=== PATIENT | female | born 2000 | race Hispanic/Latino ===

== ENCOUNTER 2024-07-23 16:02 | Emergency (ER) | payer OTHER ==
[2024-07-23 17:28] LABS: #Basophils 0.05 10x3/uL (0.0-0.2); %Basophils 0.7 % (0.0-1.0); %Lymphocytes 32.6 % (21.0-51.0); %Monocytes 7.3 % (0.0-10.0); %Neutrophils 58.3 % (42.0-75.0); Hematocrit 33.1 % (36.0-47.0); Hemoglobin 10.4 g/dL (12.0-16.0); Mean Corpuscular HGB CONC 31.4 g/dL (32.0-36.0); Mean Corpuscular Hemoglobin 24.2 pg (27.0-31.0); Mean Platelet Volume 11.5 fL (7.4-10.4); Platelet Count 294 10x3/uL (130-400); RBC Distribution Width 16.2 % (11.5-14.5)
[2024-07-23 17:44] LABS: ALT (SGPT) Less than 7 U/L (Less than 34); AST (SGOT) 16 U/L (11-34); Albumin 4.1 g/dL (3.1-4.5); Alkaline Phosphatase 53 U/L (40-110); Anion Gap 13 mmol/L (10-20); BUN (Urea Nitrogen) 11 mg/dL (7.0-18.7); Bilirubin, Total 0.5 mg/dL (0.3-1.2); Calc. Creatinine Clearance 0 mL/min (70-130); Calcium 9.6 mg/dL (7.8-10.44); Carbon Dioxide 24 mmol/L (22-29); Chloride 106 mmol/L (98-107); Estimated GFR 93; Globulin 3.1 g/dL (2.4-3.5); Glucose 81 mg/dL (70-105); Potassium 2.7 mmol/L (3.5-5.1); Protein, Total 7.2 g/dL (6.0-8.3); Sodium 140 mmol/L (136-145)
[2024-07-23 17:46] LABS: BHCG - Serum Negative (NEGATIVE); Pregs Control Background? CLEAR/WHITE (CLR/WHITE); Pregs Control Bar Appear? YES (CONTROL BAR)
[2024-07-23 17:48] LABS: Troponin I Less than 0.010 ng/mL (< 0.028)
[2024-07-23 19:12] LABS: Magnesium 1.7 mg/dL (1.6-2.6)
[2024-07-23] MEDS ORDERED: Potassium Chloride 20 MEQ TAB ONE (19:12)
[2024-07-23] MEDS ORDERED: Magnesium 2 GM/50 ML BAG (IN WATER) ONE (19:12)
[2024-07-23] MEDS ORDERED: Potassium Chloride 20 MEQ (100 mL) BAG ONE (19:13)
== END 2024-07-24 01:06 | disposition home or self-care (01) ==
LOC: ERS 16:02
DX: R00.2 Palpitations (principal); F41.9 Anxiety disorder, unspecified; E87.6 Hypokalemia; F84.0 Autistic disorder
CPT/HCPCS: 71045; 80053; 83735; 84484; 84703; 85025; 85379; 93005; 96365; 96366; 96367; J3475; J3480

== ENCOUNTER 2024-07-29 09:40 | Emergency (ER) | payer OTHER ==
[2024-07-29 10:12] LABS: #Basophils 0.06 10x3/uL (0.0-0.2); %Basophils 1.1 % (0.0-1.0); %Eosinophils 0.6 % (0.0-10.0); %Lymphocytes 28.6 % (21.0-51.0); %Monocytes 7.2 % (0.0-10.0); %Neutrophils 62.3 % (42.0-75.0); Hematocrit 32.6 % (36.0-47.0); Hemoglobin 10.2 g/dL (12.0-16.0); Mean Corpuscular HGB CONC 31.3 g/dL (32.0-36.0); Mean Corpuscular Hemoglobin 24.1 pg (27.0-31.0); Mean Corpuscular Volume 77.1 fL (78.0-98.0); Mean Platelet Volume 11.7 fL (7.4-10.4); Platelet Count 285 10x3/uL (130-400); RBC Distribution Width 16.7 % (11.5-14.5); Red Blood Cell (RBC) Count 4.23 mill/uL (4.20-5.40)
[2024-07-29 10:32] LABS: Anion Gap 12 mmol/L (10-20); BUN (Urea Nitrogen) 10 mg/dL (7.0-18.7); Calc. Creatinine Clearance 0 mL/min (70-130); Carbon Dioxide 21 mmol/L (22-29); Chloride 110 mmol/L (98-107); Potassium 3.3 mmol/L (3.5-5.1); Sodium 140 mmol/L (136-145)
[2024-07-29 10:33] LABS: ALT (SGPT) 7 U/L (Less than 34); AST (SGOT) 18 U/L (11-34); Alkaline Phosphatase 48 U/L (40-110); Bilirubin, Total 0.4 mg/dL (0.3-1.2); Calcium 9.2 mg/dL (7.8-10.44); Estimated GFR 100; Globulin 2.8 g/dL (2.4-3.5); Glucose 79 mg/dL (70-105); Protein, Total 6.8 g/dL (6.0-8.3)
[2024-07-29 10:38] LABS: Troponin I Less than 0.010 ng/mL (< 0.028)
[2024-07-29 10:47] LABS: Magnesium 1.7 mg/dL (1.6-2.6)
[2024-07-29 12:59] LABS: BHCG - Serum Negative (NEGATIVE); Pregs Control Background? CLEAR/WHITE (CLR/WHITE); Pregs Control Bar Appear? YES (CONTROL BAR)
[2024-07-29 13:21] LABS: Acetaminophen Less than 10 mcg/mL (Less than 10); Alcohol Less than 10.0 mg/dL (Less than 10); Salicylate Less than 8.0 mg/dL (Less than 8.0)
[2024-07-29 13:56] LABS: Bacteria/HPF None Seen HPF (None Seen); Bilirubin Negative (Negative); Blood, Urine Negative (Negative); CAUTI Indications for Culture Dysuria,urgency,freq; Calcium Oxalate Crystals Rare HPF (None Seen); Clarity Turbid (Clear); Glucose, Urine (Dipstick) Normal (Negative); Ketone, Urine 80 mg/dL (Negative); Leukocyte Negative Leu/uL (Negative); Nitrite Negative (Negative); Protein, Urine (Dipstick) 30 mg/dL (Neg-Trace); RBC/HPF 0-3 HPF (0-3); Urobilinogen Normal mg/dL (Less than 2); WBC/HPF 0-3 HPF (0-3); pH, Urine 6.5 (5.0-9.0)
[2024-07-29 13:57] LABS: Urine Culture Reflex No No
[2024-07-29] MEDS ORDERED: Ketorolac Tromethamine 30 MG (1 mL) VIAL ONE (14:01)
[2024-07-29 14:02] LABS: Amphetamine Not Detected (NotDetected); Barbiturates Screen Not Detected (NotDetected); Benzodiazepine Screen Not Detected (NotDetected); Cocaine Metabolite Screen Not Detected (NotDetected); Methadone Not Detected (NotDetected); Methamphetamine Not Detected (NotDetected); Opiate Screen Not Detected (NotDetected); Oxycodone Screen Not Detected (NotDetected); Phencyclidine (PCP) Not Detected (NotDetected); THC/Cannabinoid Screen Detected (NotDetected); Tricyclic Screen Not Detected (NotDetected)
[2024-07-29] MEDS ORDERED: Potassium Chloride 20 MEQ TAB ONE (15:18)
[2024-07-29] MEDS ORDERED: Acetaminophen 500 MG TAB ONE (15:22)
== END 2024-07-29 15:36 | disposition home or self-care (01) ==
LOC: ERS 09:40
DX: R07.9 Chest pain, unspecified (principal); Z86.711 Personal history of pulmonary embolism; Z87.891 Personal history of nicotine dependence
CPT/HCPCS: 36415; 71046; 80053; 80306; 80307; 81001; 83735; 84443; 84484; 84703; 85025; 85379; 93005; 96372; J1885

== ENCOUNTER 2025-02-15 00:57 | Emergency (ER) | payer OTHER ==
[2025-02-15] MEDS ORDERED: Pantoprazole 40 MG VIAL ONE (05:00)
[2025-02-15] MEDS ORDERED: Mag-Al 1200 mg/1200 mg/30 ML UDCUP ONE (05:00)
[2025-02-15] MEDS ORDERED: Famotidine/PF 20 mg/2ml Vial ONE (05:01)
[2025-02-15] MEDS ORDERED: Lidocaine Viscous Sol 2% 15 ml UD Cup ONE (05:01)
[2025-02-15 05:24] LABS: BHCG - Serum Negative (NEGATIVE)
[2025-02-15 05:25] LABS: Pregs Control Background? CLEAR/WHITE (CLR/WHITE); Pregs Control Bar Appear? YES (CONTROL BAR)
[2025-02-15 05:27] LABS: #Basophils 0.03 10x3/uL (0.0-0.2); #Eosinophils 0.09 10x3/uL (0.0-0.7); #Monocytes 0.52 10x3/uL (0.11-0.59); #Neutrophils 9.83 10x3/uL (1.40-6.50); %Basophils 0.2 % (0.0-1.0); %Eosinophils 0.7 % (0.0-10.0); %Lymphocytes 13.7 % (21.0-51.0); %Monocytes 4.3 % (0.0-10.0); %Neutrophils 80.9 % (42.0-75.0); Hematocrit 36.0 % (36.0-47.0); Hemoglobin 10.9 g/dL (12.0-16.0); Mean Corpuscular Hemoglobin 24.2 pg (27.0-31.0); Mean Corpuscular Volume 79.8 fL (78.0-98.0); Platelet Count 282 10x3/uL (130-400); Red Blood Cell (RBC) Count 4.51 mill/uL (4.20-5.40); White Blood Cell (WBC) Count 12.17 10x3/uL (4.8-10.8)
[2025-02-15 05:41] LABS: ALT (SGPT) 27 U/L (Less than 34); AST (SGOT) 39 U/L (11-34); Albumin 3.9 g/dL (3.1-4.5); Alkaline Phosphatase 62 U/L (40-110); Anion Gap 14 mmol/L (10-20); BUN (Urea Nitrogen) 14 mg/dL (7.0-18.7); Bilirubin, Total 0.3 mg/dL (0.3-1.2); Calc. Creatinine Clearance 0 mL/min (70-130); Calcium 9.6 mg/dL (7.8-10.44); Carbon Dioxide 21 mmol/L (22-29); Chloride 107 mmol/L (98-107); Globulin 3.0 g/dL (2.4-3.5); Glucose 98 mg/dL (70-105); Lipase 21 U/L (8-78); Magnesium 2.0 mg/dL (1.6-2.6); Potassium 4.1 mmol/L (3.5-5.1); Sodium 138 mmol/L (136-145)
[2025-02-15 05:52] LABS: Bacteria/HPF None Seen HPF (None Seen); CAUTI Indications for Culture Pelvic or flank pain; Glucose, Urine (Dipstick) Normal (Negative); Leukocyte 75 Leu/uL (Negative); Protein, Urine (Dipstick) 10 mg/dL (Neg-Trace); RBC/HPF None Seen HPF (0-3); Specific Gravity, Urine 1.024 (1.002-1.036); WBC/HPF 21-50 HPF (0-3)
[2025-02-15 05:57] LABS: Urine Culture Reflex Yes Yes
== END 2025-02-15 06:49 | disposition home or self-care (01) ==
LOC: ERS 00:57
DX: K29.00 Acute gastritis without bleeding (principal); F84.0 Autistic disorder
CPT/HCPCS: 36415; 80053; 81001; 83690; 83735; 84703; 85025; 87077; 87086; 96374; 96375; J2470